=== PATIENT | female | born 1985 | race American Indian/Alaskan Native ===

== ENCOUNTER 2018-06-04 20:58 | Outpatient (CLI) | payer MEDICAID, OTHER ==
[2018-06-04] MEDS ORDERED: LACTATED RINGERS 500 ML IV ONE (22:08)
[2018-06-04 22:37] LABS: Bilirubin,Urine NEG (Negative); Blood,Urine NEG (Negative); Calcium Oxalate Crystals,Urine 3+; Color,Urine Yellow (Yellow); Mucus,Urine 2+ /HPF
== END 2018-06-05 00:16 | disposition home or self-care (01) ==
LOC: TRG 20:58
PROVIDERS: ATTEND Obstetrics & Gynecology
DX: O47.02 False labor before 37 completed weeks of gestation, second trimester (principal); O26.892 Other specified pregnancy related conditions, second trimester; R10.9 Unspecified abdominal pain; Z3A.27 27 weeks gestation of pregnancy
CPT/HCPCS: 81001; J7120

== ENCOUNTER 2018-07-02 21:15 | Outpatient (CLI) | payer MEDICAID ==
[2018-07-02] MEDS ORDERED: LACTATED RINGERS 500 ML IV ONE (22:24)
[2018-07-02 23:36] LABS: Hematocrit 33.2 % (30.3-42.9); Hemoglobin 11.7 gm/dl (10.1-14.3); Mean Corpuscular HGB Conc 35 % (30-34); Mean Corpuscular Volume 87 fl (79-97); Platelet Count 215 K/mm3 (140-440); Red Cell Distribution Width 13.1 % (13.2-15.2)
[2018-07-02 23:51] VITALS: BP 123/74
[2018-07-02 23:59] LABS: Mucus,Urine 2+ /HPF
[2018-07-03] LABS: Bilirubin,Urine NEG (Negative); Blood,Urine NEG (Negative); Color,Urine Amber (Yellow); Urobilinogen,Urine < 2.0 mg/dL (<2.0)
[2018-07-03] MEDS ORDERED: ZOFRAN ODT PO PRN (01:13)
== END 2018-07-03 01:33 | disposition home or self-care (01) ==
LOC: TRG 21:15
PROVIDERS: ATTEND Obstetrics & Gynecology
DX: O21.2 Late vomiting of pregnancy (principal); Z3A.33 33 weeks gestation of pregnancy
CPT/HCPCS: 36415; 81001; 85027; 87086; J7120

== ENCOUNTER 2018-08-21 20:55 | Inpatient (IN) | payer MEDICAID ==
[2018-08-21 22:42] LABS: Hematocrit 32.8 % (30.3-42.9); Hemoglobin 11.4 gm/dl (10.1-14.3); Mean Corpuscular HGB Conc 35 % (30-34); Mean Corpuscular Volume 79 fl (79-97); Platelet Count 139 K/mm3 (140-440); Red Blood Count 4.16 M/mm3 (3.65-5.03); Red Cell Distribution Width 15.1 % (13.2-15.2)
[2018-08-21 22:50] LABS: Bilirubin,Urine MOD (Negative); Blood,Urine NEG (Negative); Color,Urine Amber (Yellow); Mucus,Urine 3+ /HPF
[2018-08-21 22:58] LABS: Alanine Aminotransferase 8 units/L (7-56); Uric Acid 6.6 mg/dL (3.5-7.6)
[2018-08-21 23:00] LABS: Ictotest,Urine Positive (Negative)
[2018-08-22] MEDS ORDERED: TYLENOL PO PRN (00:06)
[2018-08-22 02:50] LABS: Hepatitis C Virus Antibody Non-Reactive (NonReactive)
--- NOTE | 2018-08-22 07:44 | History and Physical Report ---
History of Present Illness Date of examination: 08/22/18 Date of admission: 08/22/18 00:55 Chief complaint: Brought in overnight for contractions after membranes were swept in the office yesterday. History of present illness: . 39 wks gestation. 2 prior vag deliveries. reportedly uncomplicated. Past History Past Medical History: other (Anxiety/depression) Past Surgical History: other (Hip surgery) - Obstetrical History Expected Date of Delivery: 08/29/18 Actual Gestation: 39 Week(s) 0 Day(s) : 4 Para: 2 Hx # Term Pregnancies: 2 Medications and Allergies Allergies Allergy/AdvReac Type Severity Reaction Status Date / Time shellfish derived Allergy Hives Unverified 06/04/18 20:59 Home Medications Medication Instructions Recorded Confirmed Last Taken Type Sertraline [Zoloft] 50 mg PO QDAY 08/21/18 08/21/18 08/20/18 History Active Meds: Active Medications Acetaminophen (Tylenol) 650 mg PO Q4H PRN PRN Reason: Pain, Mild (1-3) Last Admin: 08/22/18 01:10 Dose: 650 mg Documented by: - Vital Signs Vital signs: Vital Signs Pulse BP 101 H 144/75 08/21/18 21:16 08/21/18 21:16 Temp Pulse Resp BP Pulse Ox 98.4 F 77 20 119/78 08/21/18 21:40 08/22/18 03:05 08/22/18 01:10 08/22/18 03:05 - Physical Exam Breasts: Positive: deferred Cardiovascular: Regular rate Abdomen: Positive: normal appearance, distention, normal bowel sounds. Negative : tenderness, guarding Genitourinary (Female): Positive: normal external genitalia, normal perenium Vulva: both: normal Vagina: Positive: normal moisture. Negative: discharge Cervix: Negative: lesion, discharge Uterus: Positive: enlarged, other (Consistent with gestational age.) Adnexa: both: normal Extremities: Deep Tendon Reflex Grade: Normal +2 - Obstetrical FHR: category 1 Cervical Dilatation: 4 (ARM done 0740 HRS 08/22/2018) Cervical Effacement Percentage: 70 station: +2 Uterine Contraction Pattern: Irregular Results Result Diagrams: 08/21/18 22:05 08/21/18 22:05 Abnormal lab results 06/08/21/18 08/21/18 Range/Units 22:05 22:05 22:05 WBC 14.0 H (4.5-11.0) K/mm3 MCHC 35 H (30-34) % Plt Count 139 L (140-440) K/mm3 Lactate Dehydrogenase 225 H (91-180) units/L Ur Specific [place] 1.038 H (1.003-1.030) All other labs normal. Assessment and Plan 39 w3ks gestattuion. 2 Prior vaginal deliveries. ARM done with clear fluuids. Will be started on pitocin.
[2018-08-22] MEDS ORDERED: fentaNYL-BUPIV 2 MCG/ML-0.125% 200 MCG/100 ML BAG EPIDURAL ONE (08:40)
[2018-08-22] MEDS: LACTATED RINGERS 1,000 ML IV SCH ×2 (08:45→12:05)
[2018-08-22] MEDS: STADOL IV PRN ×2 (08:45→10:48)
[2018-08-22] MEDS ORDERED: PITOCin/NS 30 UNIT/500ML 30,000 MILLIUNITS/500 ML BAG IV ONE (08:47)
[2018-08-22] MEDS ORDERED: PITOCin/NS 20 UNIT/1000ML DRIP 20 UNITS/1,000 ML BAG IV SCH (09:00)
[2018-08-22] MEDS ORDERED: BRETHINE SUB-Q PRN (10:00)
[2018-08-22] MEDS ORDERED: MINERAL OIL PO PRN (10:00)
[2018-08-22] MEDS ORDERED: XYLOCAINE 2% INFILTRATI NR (10:00)
[2018-08-22] MEDS ORDERED: ZOFRAN IV PRN ×2 (10:00→15:51)
[2018-08-22] MEDS ORDERED: PITOCin/NS 30 UNIT/500ML 30 UNITS/500 ML BAG IV SCH (10:00)
[2018-08-22] MEDS ORDERED: SUBLIMAZE IV PRN (10:00)
[2018-08-22 10:23] LABS: Hematocrit 32.9 % (30.3-42.9)
--- NOTE | 2018-08-22 11:21 | Anesthesia Consultation ---
Anesthesia Consult and Med Hx - Airway Anesthetic Teeth Evaluation: Good ROM Head & Neck: Adequate Mental/Hyoid Distance: Adequate Mallampati Class: Class I Intubation Access Assessment: Good - Pulmonary Exam CTA: Yes - Cardiac Exam Cardiac Exam: RRR - Pre-Operative Health Status ASA Pre-Surgery Classification: ASA2 Proposed Anesthetic Plan: Epidural - Pulmonary Hx Asthma: No COPD: No Hx Pneumonia: No - Cardiovascular System Hx Hypertension: No - Central Nervous System Hx Seizures: No Hx Psychiatric Problems: Yes - Endocrine Hx Renal Disease: No Hx End Stage Renal Disease: No Hx Hypothyroidism: No Hx Hyperthyroidism: No - Hematic Hx Anemia: No Hx Sickle Cell Disease: No - Other Systems Hx Alcohol Use: No
[2018-08-22] MEDS ORDERED: NARCAN 2 MG/2 ML IV PRN (11:24)
--- NOTE | 2018-08-22 11:24 | Anesthesia Day of Surgery ---
Anesthesia Day of Surgery - Day of Surgery Patient Examined: Yes Patient H&P Reviewed: Yes Patient is NPO: Yes Beta Blockers: No Cardiac Clearance: No Pulmonary Clearance: No Noe's Test: N/A
[2018-08-22] MEDS ORDERED: MARCAINE 0.25% INFILTRATI ONE (11:42)
[2018-08-22] MEDS ORDERED: fentaNYL-BUPIV 2 MCG/ML-0.125% 200 MCG/100 ML BAG EPIDURAL SCH (12:00)
--- NOTE | 2018-08-22 13:14 | Progress Note ---
Assessment and Plan - Patient Problems (1) 38 weeks gestation of Current Visit: Yes Status: Acute Plan to address problem: Continue routine labor orders Continue Pitocin augmentation as tolerated Anticipate Subjective - Subjective Date of service: 08/22/18 Principal diagnosis: IOL Interval history: See admission H & P Patient reports: new complaints (Feels better with epidural), loss of fluid (AROM @ 0732), movement normal, no vaginal bleeding Objective - Vital Signs Vital Signs: Vital Signs - 12hr 08/22/18 08/22/18 08/22/18 01:36 02:05 02:35 Temperature Pulse Rate 88 82 78 Respiratory Rate Blood Pressure 109/51 124/59 126/59 O2 Sat by Pulse Oximetry 08/22/18 08/22/18 08/22/18 03:05 07:48 08:00 Temperature 98.1 F Pulse Rate 77 81 Respiratory 14 Rate Blood Pressure 119/78 130/71 O2 Sat by Pulse Oximetry 08/22/18 08/22/18 08/22/18 08:05 08:34 09:04 Temperature Pulse Rate 89 88 79 Respiratory Rate Blood Pressure 110/58 135/71 131/72 O2 Sat by Pulse Oximetry 08/22/18 08/22/18 08/22/18 09:35 10:04 10:35 Temperature Pulse Rate 71 74 67 Respiratory Rate Blood Pressure 116/58 112/55 106/56 O2 Sat by Pulse Oximetry 08/22/18 08/22/18 08/22/18 11:06 11:43 11:44 Temperature Pulse Rate 70 89 82 Respiratory Rate Blood Pressure 121/56 129/73 O2 Sat by Pulse 98 Oximetry 08/22/18 08/22/18 08/22/18 11:48 11:53 11:58 Temperature Pulse Rate 89 86 109 H Respiratory Rate Blood Pressure 132/83 O2 Sat by Pulse 96 96 97 Oximetry 08/22/18 08/22/18 08/22/18 12:03 12:08 12:10 Temperature Pulse Rate 110 H 102 H 95 H Respiratory Rate Blood Pressure 119/57 O2 Sat by Pulse 97 96 Oximetry 08/22/18 08/22/18 08/22/18 12:13 12:18 12:23 Temperature Pulse Rate 114 H 87 79 Respiratory Rate Blood Pressure O2 Sat by Pulse 96 96 94 Oximetry 08/22/18 08/22/18 08/22/18 12:24 12:28 12:32 Temperature Pulse Rate 82 93 H 101 H Respiratory Rate Blood Pressure 114/57 O2 Sat by Pulse 97 93 Oximetry 08/22/18 08/22/18 08/22/18 12:33 12:38 12:39 Temperature Pulse Rate 78 95 H 101 H Respiratory Rate Blood Pressure 117/56 O2 Sat by Pulse 94 96 Oximetry 08/22/18 08/22/18 08/22/18 12:43 12:48 12:53 Temperature Pulse Rate 89 79 98 H Respiratory Rate Blood Pressure 118/63 O2 Sat by Pulse 97 95 96 Oximetry 08/22/18 08/22/18 08/22/18 12:54 12:58 12:59 Temperature Pulse Rate 81 101 H 82 Respiratory Rate Blood Pressure O2 Sat by Pulse 92 95 92 Oximetry 08/22/18 08/22/18 08/22/18 13:00 13:03 13:06 Temperature 97.7 F Pulse Rate 86 79 Respiratory 14 Rate Blood Pressure O2 Sat by Pulse 96 94 Oximetry 08/22/18 13:08 Temperature Pulse Rate 87 Respiratory Rate Blood Pressure 117/65 O2 Sat by Pulse 95 Oximetry - Exam Breasts: deferred Cardiovascular: Regular rate Lungs: Normal air movement Abdomen: Present: other (gravid) FHR: category 1 Uterine Contraction Monitor Mode: External Cervical Dilatation: 5.5 (Pitocin at 12 mu/min) Cervical Effacement Percentage: 70 station: -1 Uterine Contraction Frequency (min): 3-4 Uterine Contraction Pattern: Regular Uterine Tone Measurement Phase: Resting Uterine Contraction Intensity: Moderate Extremities: normal Deep Tendon Reflex Grade: Normal +2 - Labs Labs: Abnormal Labs 08/21/18 08/21/18 08/21/18 22:05 22:05 22:05 WBC 14.0 H MCHC 35 H Plt Count 139 L Lactate Dehydrogenase 225 H Ur Specific [place] 1.038 H Laboratory Results - last 24 hr 08/21/18 08/21/18 08/21/18 22:05 22:05 22:05 WBC 14.0 H RBC 4.16 Hgb 11.4 Hct 32.8 MCV 79 MCH 28 MCHC 35 H RDW 15.1 Plt Count 139 L Creatinine 0.7 Estimated GFR > 60 Uric Acid 6.6 AST 19 ALT 8 Lactate Dehydrogenase 225 H Urine Color [place] Urine Turbidity Slightly-cloudy Urine pH 5.0 Ur Specific [place] 1.038 H Urine Protein 100 mg/dl Urine Glucose (UA) Neg Urine Ketones Tr Urine Blood Neg Urine Nitrite Neg Urine Bilirubin Mod Urine Ictotest Positive Urine Urobilinogen 2.0 Ur Leukocyte Esterase Neg Urine WBC (Auto) 2.0 Urine RBC (Auto) 3.0 U Epithel Cells (Auto) 4.0 Urine Mucus 3+ RPR Hep Bs Antigen Hepatitis C Antibody HIV 1&2 Antibody Rapid HIV P24 Antigen Rubella IgG Antibody Blood Type Antibody Screen 08/22/18 08/22/18 08/22/18 00:00 00:00 00:00 WBC RBC Hgb Hct MCV MCH MCHC RDW Plt Count Creatinine Estimated GFR Uric Acid AST ALT Lactate Dehydrogenase Urine Color Urine Turbidity Urine pH Ur Specific [place] Urine Protein Urine Glucose (UA) Urine Ketones Urine Blood Urine Nitrite Urine Bilirubin Urine Ictotest Urine Urobilinogen Ur Leukocyte Esterase Urine WBC (Auto) Urine RBC (Auto) U Epithel Cells (Auto) Urine Mucus RPR Nonreactive Hep Bs Antigen Hepatitis C Antibody Non-reactive HIV 1&2 Antibody Rapid HIV P24 Antigen Rubella IgG Antibody Immune Blood Type A POSITIVE Antibody Screen Negative 08/22/18 08/22/18 08/22/18 00:00 00:00 09:41 WBC RBC Hgb 11.0 Hct 32.9 MCV MCH MCHC RDW Plt Count Creatinine Estimated GFR Uric Acid AST ALT Lactate Dehydrogenase Urine Color Urine Turbidity Urine pH Ur Specific [place] Urine Protein Urine Glucose (UA) Urine Ketones Urine Blood Urine Nitrite Urine Bilirubin Urine Ictotest Urine Urobilinogen Ur Leukocyte Esterase Urine WBC (Auto) Urine RBC (Auto) U Epithel Cells (Auto) Urine Mucus RPR Hep Bs Antigen Non-reactive Hepatitis C Antibody HIV 1&2 Antibody Rapid Non react HIV P24 Antigen Non react Rubella IgG Antibody Blood Type Antibody Screen
[2018-08-22] MEDS ORDERED: BENADRYL PO PRN (15:51)
[2018-08-22] MEDS ORDERED: PHENERGAN PO PRN (15:51)
[2018-08-22] MEDS ORDERED: LANSINOH TP PRN (15:51)
[2018-08-22] MEDS ORDERED: MILK OF MAGNESIA PO PRN (15:51)
[2018-08-22] MEDS ORDERED: DULCOLAX PR PRN (15:51)
[2018-08-22] MEDS ORDERED: PHENERGAN PR PRN (15:51)
[2018-08-22] MEDS ORDERED: TUCKS PAD TP PRN (15:51)
[2018-08-22] MEDS ORDERED: SODIUM CHLORIDE FLUSH SYRINGE 10 ML IV NR (16:00)
--- NOTE | 2018-08-22 16:01 | Procedure Note ---
OB Delivery Note - Delivery Date of Delivery: 08/22/18 (1529) Surgeon: SUSAN RAMOS (CNM) Estimated blood loss: <100cc - Vaginal Delivery presentation: vertex Delivery position: OA (direct) Intrapartum events: other(please specify) (Compond delivery - bilateral hands) Delivery induction: none Delivery augmentation: rupture of membranes (0732), pitocin Delivery monitor: external FHT, external uterine Route of delivery: Delivery placenta: spontaneous (1536) Delivery cord: 3 umbilical vessels Episiotomy: none Delivery laceration: none Anesthesia: epidural Delivery comments: of viable female , cried immediately after delivery, placed on maternal abdomen. Cord double clamped and cut by FOB after 4 mins of delivery. Placenta delivery spontaneously, gomes, disposed per hospital policy. Intact perineum, hemostasis maintained. Fundus firm @ U-1. Mother and baby safe and stable. - A at 1 minute: 8 at 5 minutes: 9 Gender: Female (Weight 6 lbs 13 oz (3078 gms) 19 ozs)
[2018-08-22] MEDS: IBUPROFEN PO SCH ×2 (17:19→22:34)
[2018-08-22] MEDS: PERCOCET 5/325 PO PRN ×2 (18:05→23:29)
[2018-08-23] MEDS: IBUPROFEN PO SCH ×3 (05:23→20:27)
[2018-08-23] MEDS ORDERED: BOOSTRIX IM ONE (06:00)
[2018-08-23 06:43] LABS: Hematocrit 32.2 % (30.3-42.9); Hemoglobin 10.8 gm/dl (10.1-14.3)
[2018-08-23] MEDS: PERCOCET 5/325 PO PRN ×3 (07:26→20:28)
--- NOTE | 2018-08-23 10:35 | Progress Note ---
Assessment and Plan A: day 1 S/P spontaneous vaginal delivery. Anemia secondary to and blood loss. P: Supplement with oral iron. Anticipate discharge tomorrow. Subjective - Subjective Date of service: 08/30/18 Principal diagnosis: day 1 S/P Interval history: day 1 S/P spontaneous vaginal delivery. Doing well. Voiding without difficulty, tolerating a regular diet, ambulating well. Patient reports small amount of lochia. Patient is bottlefeeding. Patient denies headache, chest pain, cough, shortness of breath, abdominal pain, leg pain, or heavy vaginal bleeding. Patient reports: appetite normal, voiding normally, pain well controlled, flatus, ambulating normally, no dizzy ambulation, no nauseated : doing well Objective - Vital Signs Latest vital signs: Vital Signs Temp Pulse Resp BP Pulse Ox 08/23/18 07:44 97.5 F L 70 20 122/82 99 08/22/18 23:35 98.0 F 74 18 120/73 98 08/22/18 20:34 98.5 F 85 20 120/73 95 08/22/18 17:45 99.2 F 78 18 125/76 96 08/22/18 16:38 81 136/53 08/22/18 16:23 82 137/63 08/22/18 16:09 89 142/72 08/22/18 15:53 94 H 119/58 08/22/18 15:45 96 H 141/74 08/22/18 14:43 93 H 96 08/22/18 14:38 79 131/65 96 08/22/18 14:33 87 97 08/22/18 14:28 92 H 95 08/22/18 14:24 91 H 145/72 08/22/18 14:23 90 98 08/22/18 14:21 84 130/61 08/22/18 14:18 106 H 97 08/22/18 14:13 112 H 98 08/22/18 14:08 89 98 08/22/18 14:03 91 H 98 08/22/18 13:58 89 97 08/22/18 13:55 78 111/55 08/22/18 13:53 72 97 08/22/18 13:48 85 98 08/22/18 13:43 84 98 08/22/18 13:39 103 H 110/73 08/22/18 13:38 83 98 08/22/18 13:33 109 H 98 08/22/18 13:28 88 97 08/22/18 13:23 99 H 125/76 97 08/22/18 13:18 81 95 08/22/18 13:15 79 94 08/22/18 13:13 95 H 96 08/22/18 13:08 87 117/65 95 08/22/18 13:06 79 94 08/22/18 13:03 86 96 08/22/18 13:00 97.7 F 14 08/22/18 12:59 82 92 08/22/18 12:58 101 H 95 08/22/18 12:54 81 92 08/22/18 12:53 98 H 118/63 96 08/22/18 12:48 79 95 08/22/18 12:43 89 97 08/22/18 12:39 101 H 117/56 08/22/18 12:38 95 H 96 08/22/18 12:33 78 94 08/22/18 12:32 101 H 93 08/22/18 12:28 93 H 97 08/22/18 12:24 82 114/57 08/22/18 12:23 79 94 08/22/18 12:18 87 96 08/22/18 12:13 114 H 96 08/22/18 12:10 95 H 119/57 08/22/18 12:08 102 H 96 08/22/18 12:03 110 H 97 08/22/18 11:58 109 H 97 08/22/18 11:53 86 132/83 96 08/22/18 11:48 89 96 08/22/18 11:44 82 129/73 08/22/18 11:43 89 98 08/22/18 11:06 70 121/56 08/22/18 10:35 67 106/56 Intake and Output 08/22/18 08/23/18 08/23/18 23:59 07:59 15:59 Intake Total 240 Output Total 150 Balance -150 240 Intake: Oral 240 Output: Urine 150 Void 150 Other: Total, Intake Amount 240 Total, Output Amount 150 # Voids Void 1 Estimated Blood Loss 100 - Exam Abdomen: Present: normal appearance, soft. Absent: distention, tenderness, guarding, rigidity Uterus: Present: normal, firm, fundal height below umbilicus. Absent: bogginess, tenderness Extremities: Present: normal. Absent: tenderness, edema
[2018-08-23] MEDS: FEOSOL PO SCH (13:58)
[2018-08-24] MEDS: IBUPROFEN PO SCH ×2 (02:38→14:30)
[2018-08-24] MEDS: PERCOCET 5/325 PO PRN ×3 (02:38→15:30)
[2018-08-24] MEDS: FEOSOL PO SCH (09:37)
[2018-08-24 09:55] VITALS: BP 129/74
--- NOTE | 2018-08-24 10:24 | Progress Note ---
Assessment and Plan A: day 2 S/P spontaneous vaginal delivery. Anemia secondary to and blood loss. P: Discharge patient home today. Discussed discharge instructions and warning signs with patient. Advised patient to continue taking her vitamins and iron supplements at home. Advised patient to increase her water intake and avoid sodas, coffee, and tea. Advised patient to avoid intercourse, lifting and heavy housework, and driving. Advised patient to follow up at [facility] in 1-2 weeks for platelet count and urinalysis. Advised pt. to follow up at [facility] in 6 weeks for exam. Patient voiced understanding of instructions. Subjective - Subjective Date of service: 08/24/18 Principal diagnosis: day 2 S/P Interval history: day 2 S/P spontaneous vaginal delivery. Doing well. Voiding without difficulty, tolerating a regular diet, ambulating well. Patient reports small amount of lochia. Patient is bottlefeeding. Patient denies headache, chest pain, cough, dizziness, shortness of breath, abdominal pain, leg pain, heavy vaginal bleeding, or symptoms of depression. Patient reports: appetite normal, voiding normally, pain well controlled, flatus, ambulating normally, no dizzy ambulation, no nauseated : doing well Objective - Vital Signs Latest vital signs: Vital Signs Temp Pulse Resp BP Pulse Ox 08/24/18 08:00 98.2 F 91 H 20 129/74 94 08/24/18 00:58 98.5 F 87 20 123/70 97 08/23/18 16:15 98.1 F 99 H 20 130/79 97 08/23/18 11:46 98.2 F 74 20 120/82 97 Intake and Output 08/23/18 08/24/18 08/24/18 23:59 07:59 15:59 Intake Total 240 240 Balance 240 240 Intake: Oral 240 240 Other: Total, Intake Amount 240 240 # Voids Void 1 1 - Exam Cardiovascular: Present: Regular rate, Normal S1, Normal S2, No murmurs Lungs: Present: Clear to auscultation Abdomen: Present: normal appearance, soft, normal bowel sounds. Absent: distention, tenderness, guarding, rigidity Uterus: Present: normal, firm, fundal height below umbilicus. Absent: bogginess, tenderness Extremities: Present: normal. Absent: tenderness, edema
--- NOTE | 2018-08-24 10:37 | Discharge Summary ---
Providers - Providers Date of Admission: 08/22/18 00:55 Date of discharge: 08/24/18 Attending physician: BLU HENSON None Primary care physician: BLU HENSON Hospitalization Reason for admission: active labor Delivery: Episiotomy: none Laceration: none Other procedures: none complications: none Discharge diagnosis: IUP at term delivered [place] baby: female Pertinent studies: Labs Hospital course: Normal hospital course Condition at discharge: Good Disposition: DC-01 TO HOME OR SELFCARE - Discharge Diagnoses (1) Term delivered Status: Acute Plan - Provider Discharge Summary Activity: routine, no sex for 6 weeks, no heavy lifting 4 weeks, no strenuous exercise Diet: routine Instructions: routine Additional instructions: Please continue taking your vitamins and iron supplements at home. Call your doctor immediately for: * Fever > 100.5 * Heavy vaginal bleeding ( >1 pad per hour) * Severe persistent headache * Shortness of breath * Reddened, hot, painful area to leg or breast - Follow up plan Follow up: BLU HENSON MD [Primary Care Provider] - 7 Days
== END 2018-08-24 16:00 | disposition home or self-care (01) | DRG 775 ==
LOC: TRG 20:55 → LD 08-22 00:55 → OB 08-22 17:55
PROVIDERS: ADMIT Obstetrics & Gynecology; ATTEND Obstetrics & Gynecology
PROC: 10E0XZZ Delivery of Products of Conception, External Approach (ICD-10-PCS; principal; 2018-08-22)
PROC: 3E0R3BZ Introduction of Anesthetic Agent into Spinal Canal, Percutaneous Approach (ICD-10-PCS; 2018-08-22)
PROC: 00HU33Z Insertion of Infusion Device into Spinal Canal, Percutaneous Approach (ICD-10-PCS; 2018-08-22)
PROC: 3E0234Z Introduction of Serum, Toxoid and Vaccine into Muscle, Percutaneous Approach (ICD-10-PCS; 2018-08-22)
DX: O32.6XX0 Maternal care for compound presentation, not applicable or unspecified (principal); O99.02 Anemia complicating childbirth; D64.9 Anemia, unspecified; Z3A.39 39 weeks gestation of pregnancy; Z23 Encounter for immunization; Z37.0 Single live birth
CPT/HCPCS: 36415; 81001; 82565; 83615; 84450; 84460; 84550; 85014; 85018; 85027; 86592; 86706; 86762; 86803; 86850; 86900; 86901; 87806; 90471; 90715; G0378; A6250; J0595; J2590; J7120